=== PATIENT | male | born 1960 | race Caucasian/White ===

== ENCOUNTER 2017-04-19 14:03 | Emergency (ER) | payer OTHER ==
[2017-04-19 14:15] VITALS: TEMP 98.2
--- NOTE | 2017-04-19 14:40 | ED ---
Extremity Problem HPI - General Chief complaint: Extremity Problem,Nontraumatic Stated complaint: Swollen Legs Time Seen by Provider: 04/19/17 14:26 Source: patient, family, RN notes reviewed Mode of arrival: ambulatory Limitations: no limitations - History of Present Illness Initial comments: This is a 56-year-old male with a history of prior episodes of cellulitis who also has chronic venous insufficiency of his lower extremities who presents with complaints of redness and increased warmth his right lower extremity. He states is simply going on for several days. It is sent in from the top of his foot now to approximate 75% was right lower extremity. He denies any fevers chills or sweats he states his lower extremities are SWOLLEN he did recently just returned from [place] on the airplane several days ago. He does complain some calf tenderness which he states always is there. He denies any chest pain shortness of breath or other symptomatology at this time. He did contact his doctor this morning who did recommend he was a [facility] department for evaluation. MD Complaint: extremity swelling, other - Related Data Home Medications Medication Instructions Recorded Confirmed Atorvastatin [Lipitor] 10 mg PO DAILY 04/19/17 04/19/17 Multivitamins, Thera [Multivitamin 1 tab PO DAILY 04/19/17 04/19/17 (formulary)] amLODIPine BES/OLMESARTAN MED 1 tab PO DAILY 04/19/17 04/19/17 [Edinson 10-20 mg Tablet] Previous Rx's Medication Instructions Recorded Clindamycin [Cleocin] 300 mg PO Q6H #40 capsule 04/19/17 Allergies Allergy/AdvReac Type Severity Reaction Status Date / Time oxycodone [From Percocet] Allergy Nausea & Verified 04/19/17 14:23 Vomiting Review of Systems ROS Statement: Those systems with pertinent positive or pertinent negative responses have been documented in the HPI. ROS Other: All systems not noted in ROS Statement are negative. Past Medical History Past Medical History: Hyperlipidemia, Hypertension History of Any Multi-Drug Resistant Organisms: None Reported Past Surgical History: Appendectomy Past Psychological History: No Psychological Hx Reported Smoking Status: Current some day smoker Past Alcohol Use History: Occasional Past Drug Use History: None Reported General Exam - General Exam Comments Initial Comments: This a well-developed well-nourished awake alert oriented 3 male Limitations: no limitations General appearance: alert, in no apparent distress Head exam: Present: atraumatic, normocephalic, normal inspection Eye exam: Present: normal appearance, PERRL, EOMI. Absent: scleral icterus, conjunctival injection, periorbital swelling ENT exam: Present: normal exam, mucous membranes moist Neck exam: Present: normal inspection. Absent: tenderness, meningismus, lymphadenopathy Respiratory exam: Present: normal lung sounds bilaterally. Absent: respiratory distress, wheezes, rales, rhonchi, stridor Cardiovascular Exam: Present: regular rate, normal rhythm, normal heart sounds. Absent: systolic murmur, diastolic murmur, rubs, gallop, clicks GI/Abdominal exam: Present: other (Obese abdomen). Absent: distended, tenderness, guarding, rebound, rigid Extremities exam: Present: full ROM, tenderness, normal capillary refill, pedal edema, other (Evidence of venous stasis there is erythema ascending approximately three quarters [address] way up the leg towards the knee increased localized temperature. Calf tenderness on the right with an equivocal Homans sign.). Absent: joint swelling, calf tenderness Back exam: Present: normal inspection Neurological exam: Present: alert, oriented X3, CN II-XII intact Psychiatric exam: Present: normal affect, normal mood Skin exam: Present: warm, dry, intact. Absent: rash Course Vital Signs 04/19/17 14:12 Temperature 98.2 F Pulse Rate 81 Respiratory 18 Rate Blood Pressure 146/81 O2 Sat by Pulse 96 Oximetry Medical Decision Making - Medical Decision Making I did discuss Pf[employer] the patient has . Presentation is consistent with early cellulitis. Patient was placed on oral medication he is follow-up with his doctor return when necessary - Lab Data Result diagrams: 04/19/17 14:55 04/19/17 14:55 Lab Results 04/19/17 04/19/17 Range/Units 14:55 14:55 WBC 8.4 (3.8-10.6) k/uL RBC 5.23 (4.30-5.90) m/uL Hgb 15.9 (13.0-17.5) gm/dL Hct 45.3 (39.0-53.0) % MCV 86.7 (80.0-100.0) fL MCH 30.3 (25.0-35.0) pg MCHC 35.0 (31.0-37.0) g/dL RDW 13.0 (11.5-15.5) % Plt Count 230 (150-450) k/uL Neutrophils % 63 % Lymphocytes % 25 % Monocytes % 5 % Eosinophils % 3 % Basophils % 1 % Neutrophils # 5.3 (1.3-7.7) k/uL Lymphocytes # 2.1 (1.0-4.8) k/uL Monocytes # 0.5 (0-1.0) k/uL Eosinophils # 0.3 (0-0.7) k/uL Basophils # 0.1 (0-0.2) k/uL Sodium 143 (137-145) mmol/L Potassium 4.2 (3.5-5.1) mmol/L Chloride 105 (98-107) mmol/L Carbon Dioxide 28 (22-30) mmol/L Anion Gap 10 mmol/L BUN 13 (9-20) mg/dL Creatinine 0.78 (0.66-1.25) mg/dL Est GFR (MDRD) Af Amer >60 (>60 ml/min/1.73 sqM) Est GFR (MDRD) Non-Af >60 (>60 ml/min/1.73 sqM) Glucose 87 (74-99) mg/dL Calcium 9.3 (8.4-10.2) mg/dL Total Bilirubin 0.9 (0.2-1.3) mg/dL AST 35 (17-59) U/L ALT 37 (21-72) U/L Alkaline Phosphatase 63 (38-126) U/L Total Protein 7.6 (6.3-8.2) g/dL Albumin 4.6 (3.5-5.0) g/dL - Radiology Data Radiology results: report reviewed (I did review the imaging and report no evidence of DVT.), image reviewed Disposition Clinical Impression: Cellulitis of right lower extremity Disposition: HOME SELF-CARE Condition: Good Instructions: Cellulitis (ED) Additional Instructions: Elevate your right lower extremity 3-4 times a day above her heart for 15-20 minutes if possible. Prescriptions: Clindamycin [Cleocin] 300 mg PO Q6H #40 capsule Referrals: Tricia Emery DO [Primary Care Provider] - 1-2 days
[2017-04-19 15:20] LABS: Basophils # (A) 0.1 k/uL (0-0.2); Basophils % (A) 1 %; CH 29.9; CHCM 34.6; Eosinophils # (A) 0.3 k/uL (0-0.7); Eosinophils % (A) 3 %; HCT 45.3 % (39.0-53.0); HDW 2.55; HGB 15.9 gm/dL (13.0-17.5); Luc # (Auto) 0.22; Luc % (Auto) 3; Lymphocytes # (A) 2.1 k/uL (1.0-4.8); Lymphocytes % (A) 25 %; MCH 30.3 pg (25.0-35.0); MCV 86.7 fL (80.0-100.0); Mean Platelet Volume 7.2; Monocytes # (A) 0.5 k/uL (0-1.0); Monocytes % (A) 5 %; Neutrophils # (A) 5.3 k/uL (1.3-7.7); Neutrophils % (A) 63 %; RBC 5.23 m/uL (4.30-5.90); WBC 8.4 k/uL (3.8-10.6); WBC (Perox) 7.91
[2017-04-19 15:26] LABS: ALT 37 U/L (21-72); AST 35 U/L (17-59); Alkaline Phosphatase 63 U/L (38-126); Anion Gap 10 mmol/L; Blood Urea Nitrogen 13 mg/dL (9-20); Calcium 9.3 mg/dL (8.4-10.2); Carbon Dioxide 28 mmol/L (22-30); Chloride 105 mmol/L (98-107); Glucose 87 mg/dL (74-99); Non-African American GFR(MDRD) >60 (>60 ml/min/1.73 sqM); Sodium 143 mmol/L (137-145); Total Bilirubin 0.9 mg/dL (0.2-1.3); Total Protein 7.6 g/dL (6.3-8.2)
[2017-04-19 15:32] LABS: Potassium 4.2 mmol/L (3.5-5.1)
--- NOTE | 2017-04-19 15:48 | US ---
EXAMINATION TYPE: US venous doppler duplex LE RT DATE OF EXAM: 04/19/2017 3:29 PM COMPARISON: NONE CLINICAL HISTORY: Pain. red swollen lower leg SIDE PERFORMED: Right TECHNIQUE: The lower extremity deep venous system is examined utilizing real time linear array sonog babar with graded compression, doppler sonography and color-flow sonography. VESSELS IMAGED: External Iliac Vein (EIV) Common Femoral Vein Deep Femoral Vein Greater Saphenous Vein * Femoral Vein Popliteal Vein Small Saphenous Vein * Proximal Calf Veins (* superficial vessels) Right Leg: Negative for DVT Groin nodes noted incidentally. IMPRESSION: Grayscale, color doppler, spectral doppler imaging performed of the deep veins of the lo wer extremities. There is normal flow, compressibility, vascular waveforms. No evident deep venous thrombosis at or above the right knee, follow-up as indicated.
[2017-04-19] MEDS ORDERED: CLINDAMYCIN 150 MG CAP PO STA (15:52)
[2017-04-19 16:07] VITALS: BP 135/79; PULSE 87; RESP 16
== END 2017-04-19 16:07 | disposition home or self-care (01) ==
LOC: EC 14:03
DX: L03.115 Cellulitis of right lower limb (principal); I10 Essential (primary) hypertension; E78.5 Hyperlipidemia, unspecified; F17.200 Nicotine dependence, unspecified, uncomplicated; Z88.5 Allergy status to narcotic agent; Z79.899 Other long term (current) drug therapy
CPT/HCPCS: 36415; 80053; 85025; 87040; 99284

== ENCOUNTER → 2017-05-15 | Outpatient (CLI) | payer OTHER ==
--- NOTE | 2017-05-15 12:17 | ECHOS ---
STRESS ECHOCARDIOGRAM INDICATIONS: Chest pain. MEDICATIONS:: Lipitor, Hyzaar. BASELINE HEART RATE: 83 BASELINE BLOOD PRESSURE: 100/70 MAXIMUM HEART RATE: 137 MAXIMUM BLOOD PRESSURE: 195/96 85% MPHR: 140 100% MPHR: 165 METS: 6.0 MAXIMUM STAGE REACHED: 2 TOTAL EXERCISE TIME: 5:30 CLINICAL INFORMATION: Baseline EKG shows sinus rhythm with right bundle branch block. Patient exercised on Sawyer protocol for a total of 5:30 minutes achieving 6 mets, 83% of predicted maximal heart rate without chest pain. He became extremely short of breath at this level of activity and hence, the test had to be stopped. He did not have any chest pain. Baseline echo was technically suboptimal secondary to poor echo windows. Intravenous contrast was used to enhance endocardial visualization. Baseline wall motion and LV function appear normal. Post-exercise there is normal hyperdynamic response of all segments of myocardium noted. CONCLUSION: 1. Limited exercise tolerance. 2. Inconclusive EKG part of the stress test due to baseline EKG abnormalities. 3. Negative stress echo. MMODL / IJN: [id number] /
== END | disposition home or self-care (01) ==
LOC: RADNMMAIN 09:51
PROVIDERS: ATTEND Family Medicine
DX: R07.89 Other chest pain (principal)
CPT/HCPCS: 93350; 93017; Q9957